=== PATIENT | male | born 1960 | race Two or more races ===

== ENCOUNTER 2024-07-28 08:54 | Day surgery (SDC) | payer OTHER ==
[2024-07-28 09:38] LABS: BASOPHILS # 0.03 x10^3/uL (0.01-0.08); MEAN CELL VOLUME 92.6 fl (79.0-92.2); RDW 13.2 % (12.2-16.4)
[2024-07-28 09:40] LABS: ABSOLUTE IMMATURE GRANULOCYTES 0.01 x10^3/uL (0.0-0.031); EOSINOPHILS # 0.05 x10^3/uL (0.04-0.54); HEMATOCRIT 42.5 % (40.1-51.0); MCHC 32.9 g/dl (32.3-36.5); MONOCYTE # 0.44 x10^3/uL (0.30-0.82); MONOCYTE % 8.5 % (5.3-12.2); PLATELET COUNT 114 x10^3/uL (163-337)
[2024-07-28] MEDS: SODIUM CHLORIDE 250 ML IV ONE (10:00)
[2024-07-28 10:04] LABS: POTASSIUM 4.3 mmol/L (3.5-5.1)
[2024-07-28 10:05] LABS: CALCIUM 9.8 mg/dL (8.5-10.1)
[2024-07-28 10:06] LABS: ALBUMIN 4.1 g/dl (3.4-5.0); BLOOD UREA NITROGEN 27.7 mg/dL (7-18); MAGNESIUM 2.2 mg/dL (1.8-2.4)
[2024-07-28 10:11] LABS: BILIRUBIN,TOTAL 0.5 mg/dL (0.2-1)
[2024-07-28 10:15] LABS: CREATININE 1.7 mg/dL (0.55-1.3)
[2024-07-28] MEDS ORDERED: SODIUM CHLORIDE 0.9% 500 ML INFUS.BAG IV ONE (10:18)
[2024-07-28] MEDS: DEXAMETHASONE SODIUM PHOSPHATE 12 MG, DIPHENHYDRAMINE 25 MG in SODIUM CHLORIDE 100 ML IVPB ONE (10:24)
[2024-07-28] MEDS: PALONOSETRON HCL 0.25 MG/5 ML VIAL IVPUSH ONE (10:25)
[2024-07-28] MEDS: FAMOTIDINE 20 MG/50 ML IVPB 20 MG/50 ML MG IVPB ONE (11:05)
[2024-07-28 11:13] LABS: TOT PROT 8.3 g/dl (6.4-8.2)
[2024-07-28] MEDS: LEUCOVORIN INJECTION - 856 MG in DEXTROSE 5%-WATER - 250 ML IVPB ONE (11:41)
[2024-07-28] MEDS: OXALIplatin 180 MG in DEXTROSE 5%-WATER - 500 ML IV ONE (11:42)
[2024-07-28] MEDS: FLUOROURACIL 2,500 MG/50 ML VIAL IVPUSH ONE (14:20)
[2024-07-28] MEDS: FLUOROURACIL CP ONE (14:22)
[2024-07-28] MEDS: SODIUM CHLORIDE CP ONE (14:22)
[2024-07-28 16:19] VITALS: BP 95/67; PULSE 82; RESP 20; TEMP 97.7
== END 2024-07-28 14:30 | disposition home or self-care (01) ==
LOC: JONCCHEMO 08:54
PROVIDERS: ATTEND Internal Medicine Hematology & Oncology
PROC: 3E04305 Introduction of Other Antineoplastic into Central Vein, Percutaneous Approach (ICD-10-PCS; principal; 2024-07-28)
PROC: 3E043GC Introduction of Other Therapeutic Substance into Central Vein, Percutaneous Approach (ICD-10-PCS; 2024-07-28)
PROC: 3E043GC Introduction of Other Therapeutic Substance into Central Vein, Percutaneous Approach (ICD-10-PCS; 2024-07-28)
DX: Z51.11 Encounter for antineoplastic chemotherapy (principal); C18.9 Malignant neoplasm of colon, unspecified
CPT/HCPCS: 36415; 80053; 83735; 85025; 96368; 96374; 96375; 96413; 96415; G0498; J9263

== ENCOUNTER 2024-07-30 13:00 | Day surgery (SDC) | payer OTHER ==
[2024-07-30] MEDS: SODIUM CHLORIDE 1,000 ML IV ONE (13:15)
[2024-07-30] MEDS: PORTA CATH FLUSH 10 ML IVPUSH PRN (16:15)
[2024-07-30 18:33] VITALS: BP 71/42; PULSE 97; RESP 20; TEMP 97.9
== END 2024-07-30 16:15 | disposition home or self-care (01) ==
LOC: JONCCHEMO 13:00 → J7W 15:42 → JONCCHEMO 16:15
PROVIDERS: ATTEND Internal Medicine Hematology & Oncology
PROC: 3E0437Z Introduction of Electrolytic and Water Balance Substance into Central Vein, Percutaneous Approach (ICD-10-PCS; principal; 2024-07-30)
DX: C18.9 Malignant neoplasm of colon, unspecified (principal); Z76.89 Persons encountering health services in other specified circumstances
CPT/HCPCS: 96360; 96361

== ENCOUNTER 2024-08-11 09:27 | Day surgery (SDC) | payer OTHER ==
[2024-08-11 10:00] LABS: MCHC 32.7 g/dl (32.3-36.5)
[2024-08-11 10:02] LABS: IMMATURE PLATELET FRACTION # 3.10 x10^3/uL; MEAN CELL VOLUME 92.8 fl (79.0-92.2); MEAN PLT VOLUME 11.5 fl (9.4-12.4); RDW 14.2 % (12.2-16.4)
[2024-08-11] MEDS: PORTA CATH FLUSH 10 ML IVPUSH PRN (10:15)
[2024-08-11] MEDS: SODIUM CHLORIDE 250 ML IV ONE (10:20)
[2024-08-11 10:36] LABS: CO2 26 mmol/L (21-32)
[2024-08-11 10:37] LABS: GLUCOSE,RANDOM 287 mg/dL (74-106)
[2024-08-11 10:39] LABS: SGPT/ALT 48 U/L (13-61)
[2024-08-11 10:40] LABS: CREATININE 1.5 mg/dL (0.55-1.3); SGOT/AST 28 U/L (15-37)
[2024-08-11 10:41] LABS: TOT PROT 7.8 g/dl (6.4-8.2)
[2024-08-11 10:43] LABS: ALK PHOS 146 U/L (45-117)
[2024-08-11] MEDS: FAMOTIDINE 20 MG/50 ML IVPB 20 MG/50 ML MG IVPB ONE (11:40)
[2024-08-11] MEDS: MAGNESIUM OXIDE 400 MG TABLET (FP) PO ONE (12:11)
[2024-08-11] MEDS: PALONOSETRON HCL 0.25 MG/5 ML VIAL IVPUSH ONE (12:11)
[2024-08-11] MEDS: DEXAMETHASONE SODIUM PHOSPHATE 12 MG, DIPHENHYDRAMINE 25 MG in SODIUM CHLORIDE 100 ML IVPB ONE (12:15)
[2024-08-11] MEDS: INSULIN (NOVOLOG) ASPART 100 UNITS/ML 10ML VIAL SQ ONE (12:18)
[2024-08-11] MEDS: LEUCOVORIN INJECTION - 852 MG in DEXTROSE 5%-WATER - 250 ML IVPB ONE (12:54)
[2024-08-11] MEDS: OXALIplatin 180 MG in DEXTROSE 5%-WATER - 500 ML IV ONE (12:55)
[2024-08-11 13:01] VITALS: TEMP 98
[2024-08-11] MEDS: FLUOROURACIL 2,500 MG/50 ML VIAL IVPUSH ONE (15:09)
[2024-08-11] MEDS: FLUOROURACIL 5,100 MG in SODIUM CHLORIDE 3.8 ML CP ONE (15:10)
[2024-08-11 15:26] VITALS: BP 115/76; PULSE 76; RESP 18
== END 2024-08-11 15:20 | disposition home or self-care (01) ==
LOC: JONCCHEMO 09:27 → J7W 09:34 → JONCCHEMO 15:20
PROVIDERS: ATTEND Internal Medicine Hematology & Oncology
DX: Z51.11 Encounter for antineoplastic chemotherapy (principal)
CPT/HCPCS: 36415; 80053; 83036; 83735; 85025; 96367; 96368; 96375; 96411; 96413; 96415; G0498; J9263

== ENCOUNTER 2024-08-13 13:00 | Day surgery (SDC) | payer OTHER ==
[2024-08-13] MEDS: SODIUM CHLORIDE 1,000 ML IV ONE (13:30)
[2024-08-13] MEDS: PORTA CATH FLUSH 10 ML IVPUSH PRN (16:30)
[2024-08-13 19:08] VITALS: RESP 20; TEMP 98.3
[2024-08-13 19:10] VITALS: BP 89/55; PULSE 79
== END 2024-08-13 16:30 | disposition home or self-care (01) ==
LOC: J7W 13:00 → JONCCHEMO 13:00
PROVIDERS: ATTEND Internal Medicine Hematology & Oncology
PROC: 3E0437Z Introduction of Electrolytic and Water Balance Substance into Central Vein, Percutaneous Approach (ICD-10-PCS; principal; 2024-08-13)
DX: C18.7 Malignant neoplasm of sigmoid colon (principal)
CPT/HCPCS: 96360; 96361

== ENCOUNTER 2024-08-25 09:17 | Day surgery (SDC) | payer OTHER ==
[2024-08-25 09:12] LABS: ABSOLUTE IMMATURE GRANULOCYTES 0.01 x10^3/uL (0.0-0.031); BASOPHILS # 0.02 x10^3/uL (0.01-0.08); EOSINOPHIL % 1.6 % (0.8-7.0); EOSINOPHILS # 0.05 x10^3/uL (0.04-0.54); MCHC 33.4 g/dl (32.3-36.5); MEAN CELL VOLUME 92.6 fl (79.0-92.2); MEAN PLT VOLUME 10.3 fl (9.4-12.4); MONOCYTE # 0.36 x10^3/uL (0.30-0.82); MONOCYTE % 11.2 % (5.3-12.2); RDW 14.7 % (12.2-16.4)
[2024-08-25 09:33] LABS: CO2 27 mmol/L (21-32)
[2024-08-25 09:34] LABS: GLUCOSE,RANDOM 338 mg/dL (74-106)
[2024-08-25 09:36] LABS: SGPT/ALT 47 U/L (13-61)
[2024-08-25 09:37] LABS: CREATININE 1.6 mg/dL (0.55-1.3); SGOT/AST 25 U/L (15-37)
[2024-08-25 09:38] LABS: TOT PROT 8.1 g/dl (6.4-8.2)
[2024-08-25 09:44] LABS: ALK PHOS 107 U/L (45-117)
[2024-08-25] MEDS: SODIUM CHLORIDE 250 ML IV ONE (09:57)
[2024-08-25] MEDS ORDERED: OXALIplatin 180 MG in DEXTROSE 5%-WATER - 500 ML IV ONE (10:00)
[2024-08-25 10:14] VITALS: BP 96/69; PULSE 80; TEMP 97.1
[2024-08-25] MEDS ORDERED: INSULIN ASPART SLIDING SCALE (NOVOLOG) 1 VIAL SQ ONE ×3 (10:23→15:14)
[2024-08-25] MEDS: INSULIN (NOVOLOG) ASPART 100 UNITS/ML 10ML VIAL SQ ONE ×2 (10:31→15:16)
[2024-08-25] MEDS: FAMOTIDINE 20 MG/50 ML IVPB 20 MG/50 ML MG IVPB ONE (10:35)
[2024-08-25] MEDS: DEXAMETHASONE SODIUM PHOSPHATE 12 MG, DIPHENHYDRAMINE 25 MG in SODIUM CHLORIDE 100 ML IVPB ONE (11:14)
[2024-08-25] MEDS: PALONOSETRON HCL 0.25 MG/5 ML VIAL IVPUSH ONE (11:15)
[2024-08-25] MEDS ORDERED: FLUOROURACIL 2,500 MG/50 ML VIAL IVPUSH ONE (12:00)
[2024-08-25] MEDS: LEUCOVORIN INJECTION - 852 MG in DEXTROSE 5%-WATER - 250 ML IVPB ONE (12:03)
[2024-08-25] MEDS ORDERED: FLUOROURACIL 5,100 MG in SODIUM CHLORIDE 3.8 ML CP ONE (12:15)
[2024-08-25] MEDS: FLUOROURACIL 4,500 MG in SODIUM CHLORIDE 2 ML CP ONE (14:27)
[2024-08-25 15:48] VITALS: RESP 20
== END 2024-08-25 15:30 | disposition home or self-care (01) ==
LOC: JONCCHEMO 09:17
PROVIDERS: ATTEND Internal Medicine Hematology & Oncology
DX: Z51.11 Encounter for antineoplastic chemotherapy (principal); C18.7 Malignant neoplasm of sigmoid colon
CPT/HCPCS: 36415; 80053; 82962; 83735; 85025; 96367; 96368; 96375; 96413; 96415; G0498; J9263

== ENCOUNTER 2024-09-04 12:38 | Day surgery (SDC) | payer OTHER ==
[2024-09-04] MEDS: SODIUM CHLORIDE 1,000 ML IV ONE (12:53)
[2024-09-04 16:11] VITALS: RESP 18; TEMP 97.8
[2024-09-04 16:15] VITALS: BP 113/70; PULSE 83
[2024-09-04] MEDS ORDERED: PORTA CATH FLUSH 10 ML IVPUSH PRN (16:15)
== END 2024-09-04 14:30 | disposition home or self-care (01) ==
LOC: JONCNONCHE 12:38 → J7W 12:39 → JONCNONCHE 14:30
PROVIDERS: ATTEND Internal Medicine Hematology & Oncology
PROC: 3E0437Z Introduction of Electrolytic and Water Balance Substance into Central Vein, Percutaneous Approach (ICD-10-PCS; principal; 2024-09-04)
DX: C18.7 Malignant neoplasm of sigmoid colon (principal)
CPT/HCPCS: 96360; 96361

== ENCOUNTER 2024-10-20 09:12 | Day surgery (SDC) | payer OTHER ==
[2024-10-20] MEDS: SODIUM CHLORIDE 500 ML IV ONE (09:30)
[2024-10-20 09:52] LABS: BASOPHILS # 0.03 x10^3/uL (0.01-0.08); EOSINOPHILS # 0.10 x10^3/uL (0.04-0.54); MEAN CELL VOLUME 100.0 fl (79.0-92.2)
[2024-10-20 09:54] LABS: ABSOLUTE IMMATURE GRANULOCYTES 0.02 x10^3/uL (0.0-0.031); EOSINOPHIL % 1.8 % (0.8-7.0); IMMATURE PLATELET FRACTION # 2.60 x10^3/uL; MCHC 33.0 g/dl (32.3-36.5); MEAN PLT VOLUME 9.8 fl (9.4-12.4); MONOCYTE # 0.66 x10^3/uL (0.30-0.82); MONOCYTE % 11.6 % (5.3-12.2); RDW 13.5 % (12.2-16.4)
[2024-10-20] MEDS ORDERED: DEXTROSE 5% IVPB ONE (10:00)
[2024-10-20] MEDS ORDERED: LEUCOVORIN IVPB ONE (10:00)
[2024-10-20] MEDS ORDERED: WATER IVPB ONE (10:00)
[2024-10-20 10:07] LABS: GLUCOSE,RANDOM 328.0 mg/dL (74-106)
[2024-10-20 10:08] LABS: TOT PROT 8.3 g/dl (6.4-8.2)
[2024-10-20 10:09] LABS: CO2 25.0 mmol/L (21-32)
[2024-10-20 10:11] LABS: ALK PHOS 108.0 U/L (40-150)
[2024-10-20 10:13] LABS: SGOT/AST 27.0 U/L (5-34); SGPT/ALT 32.0 U/L (0-55)
[2024-10-20 10:14] LABS: CREATININE 1.39 mg/dL (0.55-1.3)
[2024-10-20] MEDS: DEXAMETHASONE SODIUM PHOSPHATE 6 MG in SODIUM CHLORIDE 50 ML IVPB ONE (11:13)
[2024-10-20] MEDS: PALONOSETRON HCL 0.25 MG/5 ML VIAL IVPUSH ONE (11:14)
[2024-10-20] MEDS: INSULIN (NOVOLOG) ASPART 100 UNITS/ML 10ML VIAL SQ ONE ×2 (11:18→13:54)
[2024-10-20] MEDS: WATER IVPB ONE (11:48)
[2024-10-20] MEDS: DEXTROSE 5% IVPB ONE (11:48)
[2024-10-20] MEDS: LEUCOVORIN IVPB ONE (11:48)
[2024-10-20] MEDS: FLUOROURACIL 1,000 MG/20 ML VIAL IVPUSH ONE (13:56)
[2024-10-20] MEDS: SODIUM CHLORIDE CP ONE (13:56)
[2024-10-20] MEDS: FLUOROURACIL CP ONE (13:56)
[2024-10-20 15:42] VITALS: PULSE 80; TEMP 98.3
[2024-10-20 16:03] VITALS: BP 107/73; RESP 20
== END 2024-10-20 14:00 | disposition home or self-care (01) ==
LOC: JONCCHEMO 09:12
PROVIDERS: ATTEND Internal Medicine Hematology & Oncology
PROC: 3E04305 Introduction of Other Antineoplastic into Central Vein, Percutaneous Approach (ICD-10-PCS; principal; 2024-10-20)
PROC: 3E043GC Introduction of Other Therapeutic Substance into Central Vein, Percutaneous Approach (ICD-10-PCS; 2024-10-20)
DX: Z51.11 Encounter for antineoplastic chemotherapy (principal); C18.7 Malignant neoplasm of sigmoid colon
CPT/HCPCS: 36415; 80053; 82378; 82962; 83735; 85025; 96365; 96366; 96375; 96409; G0498

== ENCOUNTER 2024-10-22 12:12 | Day surgery (SDC) | payer OTHER ==
[2024-10-22] MEDS: SODIUM CHLORIDE 1,000 ML IV ONE (12:16)
[2024-10-22 13:06] VITALS: RESP 18; TEMP 98.4
[2024-10-22 15:10] VITALS: BP 102/58; PULSE 72
[2024-10-22] MEDS: PORTA CATH FLUSH 10 ML IVPUSH PRN (15:11)
== END 2024-10-22 15:24 | disposition home or self-care (01) ==
LOC: JONCCHEMO 12:12
PROVIDERS: ATTEND Internal Medicine Hematology & Oncology
PROC: 3E0437Z Introduction of Electrolytic and Water Balance Substance into Central Vein, Percutaneous Approach (ICD-10-PCS; principal; 2024-10-22)
DX: C18.7 Malignant neoplasm of sigmoid colon (principal)
CPT/HCPCS: 96360; 96361

== ENCOUNTER 2024-11-05 12:20 | Day surgery (SDC) | payer OTHER ==
[2024-11-05] MEDS: SODIUM CHLORIDE 1,000 ML IV ONE (12:28)
[2024-11-05] MEDS: PORTA CATH FLUSH 10 ML IVPUSH PRN (15:10)
[2024-11-05 17:45] VITALS: RESP 20; TEMP 97.4
[2024-11-05 17:59] VITALS: BP 101/63; PULSE 71
== END 2024-11-05 15:35 | disposition home or self-care (01) ==
LOC: JONCCHEMO 12:20
PROVIDERS: ATTEND Internal Medicine Hematology & Oncology
PROC: 3E0437Z Introduction of Electrolytic and Water Balance Substance into Central Vein, Percutaneous Approach (ICD-10-PCS; principal; 2024-11-05)
DX: C18.7 Malignant neoplasm of sigmoid colon (principal)
CPT/HCPCS: 96360